=== PATIENT | male | born 1930 | race Native Hawaiian/Other Pacific Islander ===

== ENCOUNTER 2018-04-24 15:36 | Inpatient (IN) | payer MEDICARE, MEDICAID ==
[2018-04-24] MEDS ORDERED: Lidocaine 5% Patch TD ONE ×2 (16:21→16:27)
--- NOTE | 2018-04-24 16:21 | C.PDOC ---
History Of Present Illness 87 years old male presents to ED for complaints of left lower back pain s/p fall last night. Patient states he accidentally fell off the toilet. Patient reports he uses a walker. He also reports he was ambulatory on the scene. Patient describes pain is persistent, localized, and worse with movement. Denies taking pain medications. Denies sustaining head injury. Patient's LOC was witnessed by family. No prolonged time on floor. L LOWER BACK PAIN SP FALL LAST NIGHT. ACCID FELL OFF TOILET. USES WALKER. AMBUL ON SCENE. CO PERSIST PAIN, LOCALIZED WORSE W MOVEMENT. NO PAIN MEDS TRIED. NO HEAD INJURY, LOC WITNESSED BY FAMILY. NO PROLONGED TIME ON THE FLOOR. EXAM MILD DIST NONTOXIC HEENT ATRAUM NECK SUPPLE NONTEND EXT AROM B/L HIP WO DIFF. BACK B/L LOWER BACK TEND W SPASM, NO FOCAL SPINAL TEND NEURO INTACT SKIN INTACT - HPI Time Seen by Provider: 04/24/18 15:43 Chief Complaint (Nursing): Back Pain History Per: Patient, Family History/Exam Limitations: no limitations Onset/Duration Of Symptoms: Hrs Injury Occurred (Timing): Hours Ago: Location Of Injury: Left: Back Associated Symptoms: LOC Recent travel outside of the [place]: No - Fall Fall:Prior To Injury: Slipped Past Medical History Reviewed: Historical Data, Nursing Documentation, Vital Signs Vital Signs: Last Vital Signs Temp 98.1 F 04/24/18 15:40 Pulse 77 04/24/18 16:09 Resp 15 04/24/18 16:09 BP 159/68 H 04/24/18 16:09 Pulse Ox 99 04/24/18 16:09 - Medical History PMH: Arthritis, Benign Prostatic Hyperplasia, HTN, Parkinson's Disease Denies: Chronic Kidney Disease - [facility] Procedures CENTRAL VENOUS CATHETER PLACEMENT WITH GUIDANCE (06/25/13) EXCISION OF DUODENUM, ENDO, DIAGN (11/23/15) EXCISION OF STOMACH, ENDO, DIAGN (11/23/15) TRANSFUSE NONAUT RED BLOOD CELLS IN PERIPH VEIN, PERC (11/23/15) Family History: States: Unknown Family Hx - Social History Hx Tobacco Use: No Hx Alcohol Use: No Hx Substance Use: No - Immunization History Hx Tetanus Toxoid Vaccination: No Hx Influenza Vaccination: Yes Hx Pneumococcal Vaccination: Yes Review Of Systems Constitutional: Negative for: Fever, Chills Gastrointestinal: Negative for: Nausea, Vomiting, Diarrhea Musculoskeletal: Positive for: Back Pain (Left lower back ) Skin: Negative for: Rash Neurological: Negative for: Weakness, Numbness Physical Exam - Physical Exam Appears: Non-toxic, In Acute Distress (Mild ) Skin: Normal Color, Warm, Dry, No Rash Head: Atraumatic, Normacephalic Eye(s): bilateral: Normal Inspection, PERRL, EOMI Nose: Normal, No Deformity Oral Mucosa: Moist Throat: Normal, No Erythema, No Exudate, No Drooling, No Mass Neck: Normal ROM, Supple Chest: Symmetrical, No Tenderness Cardiovascular: Rhythm Regular Respiratory: Normal Breath Sounds, No Rales, No Rhonchi, No Wheezing Gastrointestinal/Abdominal: Bowel Sounds, Soft, No Tenderness Back: Other (Bilateral lower back tenderness with spasm. No focal spinal tenderness. ) Extremity: Normal ROM (Active ROM of bilateral hip with no difficulties. ) Extremity: Bilateral: Atraumatic, Normal Color And Temperature, Normal ROM Pulses: Left Radial: Normal, Right Radial: Normal Neurological/Psych: Oriented x3, Normal Speech, Normal Motor, Normal Sensation, Normal Reflexes ED Course And Treatment O2 Sat by Pulse Oximetry: 99 (RA) Pulse Ox Interpretation: Normal - Other Rad LS SPINE X-Ray: Interpreted by Me (NEG FX) Lumbar Spine X-Ray X-Ray: Viewed By Me, Read By Radiologist Interpretation: Lumbar spine three views. HISTORY: Injury. COMPARISON: None available. Findings: Limited study secondary to suboptimal technique. Atherosclerotic calcification and plaque within the aorta. Mild anterolisthesis of L4 on L5. Multilevel disc space narrowing. Multilevel anterior osteophyte formation. Lower level facet hypertrophy and sclerosis. Loss of height of the inferior endplate of the L3 vertebral body. Sacrum is obscured by overlying bowel gas. Impression: Degenerative changes. If pain persists, consider correlation with MRI. Reevaluation Time: 17:43 Reassessment Condition: Improved Medical Decision Making Medical Decision Making: Plan: * Flexeril * Lidocaine * Toradol * Tylenol * Lumbar Spine X-Ray * LS Spine AP/LAT X-Ray Disposition Counseled Patient/Family Regarding: Studies Performed, Diagnosis, Need For Followup, Rx Given - Disposition Referrals: YOUR,PMD [Other] Disposition: HOME/ ROUTINE Disposition Time: 17:44 Condition: IMPROVED Prescriptions: Acetaminophen [Tylenol 325mg tab] 650 mg PO Q6 #30 tab Cyclobenzaprine [Flexeril] 5 mg PO TID #15 tab Ibuprofen [Motrin] 400 mg PO QID #30 tab Instructions: Low Back Pain (DC) Forms: [employer] (Armenian) - Clinical Impression Clinical Impression: Low back pain, Contusion of back - Scribe Statement The provider has reviewed the documentation as recorded by the Scribe Geri Oneil All medical record entries made by the Scribe were at my direction and personally dictated by me. I have reviewed the chart and agree that the record accurately reflects my personal performance of the history, physical exam, medical decision making, and the department course for this patient. I have also personally directed, reviewed, and agree with the discharge instructions and disposition.
--- NOTE | 2018-04-24 16:58 | RAD ---
Lumbar spine three views HISTORY: Injury. COMPARISON: None available. Findings: Limited study secondary to suboptimal technique. Atherosclerotic calcification and plaque within the aorta. Mild anterolisthesis of L4 on L5. Multilevel disc space narrowing. Multilevel anterior osteophyte formation. Lower level facet hypertrophy and sclerosis. Loss of height of the inferior endplate of the L3 vertebral body. Sacrum is obscured by overlying bowel gas. Impression: Degenerative changes. If pain persists, consider correlation with MRI.
--- NOTE | 2018-04-24 23:51 | CP.PCM.HP ---
Past Patient History - Infectious Disease Hx of Infectious Diseases: None - Past Medical History & Family History Past Medical History?: Yes - Past Social History Smoking Status: Former Smoker - CARDIAC Hx Hypertension: Yes - PULMONARY Hx Respiratory Disorders: No - NEUROLOGICAL Hx Parkinson's Disease: Yes - HEENT Hx HEENT Problems: No - RENAL Hx Chronic Kidney Disease: No - ENDOCRINE/METABOLIC Hx Endocrine Disorders: No - HEMATOLOGICAL/ONCOLOGICAL Hx Blood Disorders: No - INTEGUMENTARY Hx Dermatological Problems: No - MUSCULOSKELETAL/RHEUMATOLOGICAL Hx Arthritis: Yes - GASTROINTESTINAL Hx Gastrointestinal Disorders: Yes Hx Gastroesophageal Reflux: Yes - GENITOURINARY/GYNECOLOGICAL Hx Genitourinary Disorders: No - PSYCHIATRIC Hx Substance Use: No - SURGICAL HISTORY Hx Surgeries: Yes Hx Cataract Extraction: Yes (1994) - ANESTHESIA Hx Anesthesia: Yes Hx Anesthesia Reactions: No Hx Malignant Hyperthermia: No Meds Home Medications: Home Medication List Medication Instructions Recorded Confirmed Type Acetaminophen [Tylenol 325mg tab] 650 mg PO Q6 #30 tab 04/24/18 Rx Cyclobenzaprine [Flexeril] 5 mg PO TID #15 tab 04/24/18 Rx Ibuprofen [Motrin] 400 mg PO QID #30 tab 04/24/18 Rx Allergies/Adverse Reactions: Allergies Allergy/AdvReac Type Severity Reaction Status Date / Time No Known Allergies Allergy Verified 04/24/18 15:46 Results - Vital Signs Recent Vital Signs: Last Vital Signs Temp 98.6 F 04/24/18 21:40 Pulse 75 04/24/18 21:40 Resp 20 04/24/18 21:40 BP 157/81 H 04/24/18 21:40 Pulse Ox 96 04/24/18 21:40
[2018-04-25] MEDS: Carbidopa/Levodopa 25/100 CR PO SCH ×3 (09:40→18:08)
[2018-04-25] MEDS: Pantoprazole 40 mg EC Tab PO SCH (09:43)
[2018-04-25] MEDS ORDERED: OLOPATADINE 0.1% OU SCH (10:00)
[2018-04-25] MEDS ORDERED: Enoxaparin 40 mg Syringe SC SCH (10:00)
[2018-04-25] MEDS ORDERED: Home Med 1 UNIT (Multivitamin [Multivitamins] 1 EACH) PO SCH (10:00)
[2018-04-25] MEDS ORDERED: RASAGILINE MESYLATE 1 MG PO SCH (10:00)
[2018-04-25] MEDS: Multiple Vitamins Tab PO SCH (11:10)
[2018-04-25 11:18] LABS: BASO # 0.1 K/uL (0.0-0.2); EOS # 0.3 K/uL (0.0-0.7); EOS % 3.1 % (0.0-4.0); HEMOGLOBIN 8.4 g/dL (12.0-18.0); LYMPH % 9.9 % (20.0-40.0); MEAN CELL VOLUME 98.5 fL (80.0-94.0); MEAN CORPUSCULAR HEMOGLOBIN 32.5 pg (27.0-31.0); MEAN CORPUSCULAR HGB CONC 33.1 g/dL (33.0-37.0); MEAN PLATELET VOLUME 10.8 fL (7.2-11.7); MONO # 0.5 K/uL (0.0-0.8); MONO % 4.6 % (0.0-10.0); NEUT % 81.4 % (50.0-75.0); NRBC % 0.1 % (0.0-2.0); PLATELET COUNT 318 K/uL (130-400); RBC 2.57 Mil/uL (4.40-5.90); RED CELL DISTRIBUTION WIDTH 17.4 % (11.5-14.5); WHITE BLOOD COUNT 9.9 K/uL (4.8-10.8)
[2018-04-25 11:26] LABS: INR 1.4; PROTHROMBIN TIME 14.8 SECONDS (9.7-12.2)
[2018-04-25 11:35] LABS: ALB/GLOB RATIO 1.1 (1.0-2.1); ALBUMIN 3.6 g/dL (3.5-5.0); CALCIUM 8.2 mg/dl (8.6-10.4)
[2018-04-25 12:00] LABS: ANISOCYTOSIS SLIGHT; BANDS 1 % (0-2); EOSINOPHIL 1 % (0-4); HYPOCHROMIC SLIGHT; LYMPHOCYTE 8 % (20-40); MONOCYTE 4 % (0-10); NEUTROPHIL 86 % (50-75); OVALOCYTES SLIGHT; PLATELET ESTIMATE NORMAL (NORMAL); POLYCHROMIC SLIGHT; TOTAL CELLS COUNTED 100
--- NOTE | 2018-04-25 14:24 | CP.PCM.PN ---
Subjective - Date & Time of Evaluation Date of Evaluation: 04/25/18 Time of Evaluation: 09:30 - Subjective Subjective: clinically same Objective - Vital Signs/Intake and Output Vital Signs (last 24 hours): Temp Pulse Resp BP Pulse Ox 98 F 75 20 137/68 97 04/25/18 08:00 04/25/18 11:41 04/25/18 08:00 04/25/18 09:38 04/25/18 08:00 Intake and Output: 04/25/18 04/25/18 06:59 18:59 Intake Total 60 Balance 60 - Medications Medications: Current Medications Aspirin (Ecotrin) 81 mg PO DAILY [facility] Last Admin: 04/25/18 09:39 Dose: 81 mg Carbidopa/Levodopa (Sinemet Cr) 1 tab PO TID [facility] Last Admin: 04/25/18 13:16 Dose: 1 tab Carvedilol (Coreg) 25 mg PO Q12H [facility] Last Admin: 04/25/18 08:00 Dose: 25 mg Clopidogrel Bisulfate (Plavix) 75 mg PO DAILY [facility] Last Admin: 04/25/18 09:39 Dose: 75 mg Docusate Sodium (Colace) 100 mg PO BID PRN PRN Reason: Constipation Enoxaparin Sodium (Lovenox) 40 mg SC DAILY [facility] Last Admin: 04/25/18 09:39 Dose: 40 mg Entacapone (Comtan) 200 mg PO TID [facility] Last Admin: 04/25/18 13:16 Dose: 200 mg Ferrous Sulfate (Feosol) 325 mg PO TID [facility] Last Admin: 04/25/18 13:16 Dose: 325 mg Folic Acid (Folic Acid) 1 mg PO DAILY [facility] Last Admin: 04/25/18 09:39 Dose: 1 mg Gabapentin (Neurontin) 300 mg PO TID [facility] Last Admin: 04/25/18 13:16 Dose: 300 mg Home Med (Olopatadine 0.1% Opht [Patanol 0.1% Opht Soln]) 1 drop OU BID [facility] Home Med (Rasagiline Mesylate [Rasagiline Mesylate]) 1 mg PO DAILY [facility] Losartan Potassium (Cozaar) 100 mg PO DAILY [facility] Last Admin: 04/25/18 09:39 Dose: 100 mg Multivitamins (Hexavitamin) 1 tab PO DAILY [facility] Last Admin: 04/25/18 11:10 Dose: 1 tab Pantoprazole Sodium (Protonix Ec Tab) 40 mg PO DAILY [facility] Last Admin: 04/25/18 09:43 Dose: 40 mg Tamsulosin HCl (Flomax) 0.8 mg PO DAILY [facility] Last Admin: 04/25/18 10:37 Dose: 0.8 mg - Labs Labs: 04/25/18 11:01 04/25/18 11:01 PT 14.8 SECONDS (9.7-12.2) H 04/25/18 11:01 INR 1.4 04/25/18 11:01 APTT 36 SECONDS (21-34) H 04/25/18 11:01 - Constitutional Appears: Well - Head Exam Head Exam: ATRAUMATIC, NORMAL INSPECTION, NORMOCEPHALIC - Eye Exam Eye Exam: EOMI, Normal appearance, PERRL Pupil Exam: NORMAL ACCOMODATION, PERRL - ENT Exam ENT Exam: Mucous Membranes Moist, Normal Exam - Neck Exam Neck Exam: Full ROM, Normal Inspection. absent: Lymphadenopathy - Respiratory Exam Respiratory Exam: Decreased Breath Sounds - Cardiovascular Exam Cardiovascular Exam: REGULAR RHYTHM, +S1, +S2 - GI/Abdominal Exam GI & Abdominal Exam: Soft, Diminished Bowel Sounds - Rectal Exam Rectal Exam: Deferred
[2018-04-25] MEDS: Naphazoline-Pheniramine Ophth Soln OU PRN (20:46)
[2018-04-26] MEDS: Carbidopa/Levodopa 25/100 CR PO SCH ×3 (09:43→18:13)
[2018-04-26] MEDS: Multiple Vitamins Tab PO SCH (09:43)
[2018-04-26] MEDS: Pantoprazole 40 mg EC Tab PO SCH (09:45)
--- NOTE | 2018-04-26 17:16 | CP.PCM.PN ---
Subjective - Date & Time of Evaluation Date of Evaluation: 04/26/18 Time of Evaluation: 08:30 - Subjective Subjective: clinically same Objective - Vital Signs/Intake and Output Vital Signs (last 24 hours): Temp Pulse Resp BP Pulse Ox 98.2 F 58 L 20 107/57 L 100 04/26/18 15:00 04/26/18 15:00 04/26/18 15:00 04/26/18 15:00 04/26/18 15:00 Intake and Output: 04/26/18 04/26/18 06:59 18:59 Intake Total 300 300 Balance 300 300 - Medications Medications: Current Medications Aspirin (Ecotrin) 81 mg PO DAILY [facility] Last Admin: 04/26/18 09:43 Dose: 81 mg Carbidopa/Levodopa (Sinemet Cr) 1 tab PO TID [facility] Last Admin: 04/26/18 14:18 Dose: 1 tab Carvedilol (Coreg) 25 mg PO Q12H [facility] Last Admin: 04/26/18 08:49 Dose: 25 mg Clopidogrel Bisulfate (Plavix) 75 mg PO DAILY [facility] Last Admin: 04/26/18 09:43 Dose: 75 mg Docusate Sodium (Colace) 100 mg PO BID PRN PRN Reason: Constipation Enoxaparin Sodium (Lovenox) 30 mg SC DAILY [facility] Entacapone (Comtan) 200 mg PO TID [facility] Last Admin: 04/26/18 14:18 Dose: 200 mg Ferrous Sulfate (Feosol) 325 mg PO TID [facility] Last Admin: 04/26/18 14:18 Dose: 325 mg Folic Acid (Folic Acid) 1 mg PO DAILY [facility] Last Admin: 04/26/18 09:43 Dose: 1 mg Gabapentin (Neurontin) 300 mg PO TID [facility] Last Admin: 04/26/18 14:18 Dose: 300 mg Home Med (Patient's Own Medication) 1 tab PO DAILY [facility] Losartan Potassium (Cozaar) 100 mg PO DAILY [facility] Last Admin: 04/26/18 09:42 Dose: 100 mg Multivitamins (Hexavitamin) 1 tab PO DAILY [facility] Last Admin: 04/26/18 09:43 Dose: 1 tab Naphazoline HCl/Pheniramine Maleate (Naphcon-A Opht) 0 ml OU QID PRN PRN Reason: OCULAR ITCHING/REDNESS Stop: 04/28/18 18:01 Last Admin: 04/25/18 20:46 Dose: 1 drop Pantoprazole Sodium (Protonix Ec Tab) 40 mg PO DAILY [facility] Last Admin: 04/26/18 09:45 Dose: 40 mg Tamsulosin HCl (Flomax) 0.8 mg PO DAILY [facility] Last Admin: 04/26/18 09:47 Dose: 0.8 mg - Labs Labs: 04/25/18 11:01 04/25/18 11:01 PT 14.8 SECONDS (9.7-12.2) H 04/25/18 11:01 INR 1.4 04/25/18 11:01 APTT 36 SECONDS (21-34) H 04/25/18 11:01 - Constitutional Appears: Well - Head Exam Head Exam: ATRAUMATIC, NORMAL INSPECTION, NORMOCEPHALIC - Eye Exam Eye Exam: EOMI, Normal appearance, PERRL Pupil Exam: NORMAL ACCOMODATION, PERRL - ENT Exam ENT Exam: Mucous Membranes Moist, Normal Exam - Neck Exam Neck Exam: Full ROM, Normal Inspection. absent: Lymphadenopathy - Respiratory Exam Respiratory Exam: Decreased Breath Sounds - Cardiovascular Exam Cardiovascular Exam: REGULAR RHYTHM, +S1, +S2 - GI/Abdominal Exam GI & Abdominal Exam: Soft, Diminished Bowel Sounds - Rectal Exam Rectal Exam: Deferred
[2018-04-27] MEDS: Carbidopa/Levodopa 25/100 CR PO SCH ×3 (09:01→17:36)
[2018-04-27] MEDS: Multiple Vitamins Tab PO SCH (09:01)
[2018-04-27] MEDS: Pantoprazole 40 mg EC Tab PO SCH (09:01)
[2018-04-27] MEDS: Rasagiline Mesylate [Rasagiline Mesylate] 1 MG PO SCH (09:02)
[2018-04-27] MEDS: Enoxaparin 30 mg Syringe SC SCH (09:08)
[2018-04-27 11:30] LABS: BASO # 0.1 K/uL (0.0-0.2); EOS # 0.3 K/uL (0.0-0.7); EOS % 4.1 % (0.0-4.0); HEMOGLOBIN 7.6 g/dL (12.0-18.0); LYMPH # 0.9 K/uL (1.0-4.3); LYMPH % 11.3 % (20.0-40.0); MEAN CORPUSCULAR HEMOGLOBIN 32.4 pg (27.0-31.0); MEAN CORPUSCULAR HGB CONC 32.8 g/dL (33.0-37.0); MEAN PLATELET VOLUME 11.2 fL (7.2-11.7); MONO # 0.5 K/uL (0.0-0.8); MONO % 6.2 % (0.0-10.0); NEUT # 6.2 K/uL (1.8-7.0); NEUT % 77.4 % (50.0-75.0); RBC 2.34 Mil/uL (4.40-5.90); RED CELL DISTRIBUTION WIDTH 17.3 % (11.5-14.5)
[2018-04-27 12:27] LABS: BLOOD UREA NITROGEN 20 mg/dL (9-20); CALCIUM 8.3 mg/dl (8.6-10.4); GFR NON-AFRICAN AMERICAN 57
--- NOTE | 2018-04-27 18:51 | CP.PCM.PN ---
Subjective - Date & Time of Evaluation Date of Evaluation: 04/27/18 Time of Evaluation: 09:00 - Subjective Subjective: clinically same Objective - Vital Signs/Intake and Output Vital Signs (last 24 hours): Temp Pulse Resp BP Pulse Ox 97.8 F 63 16 133/69 100 04/27/18 18:03 04/27/18 18:03 04/27/18 18:03 04/27/18 18:03 04/27/18 16:00 Intake and Output: 04/27/18 04/27/18 06:59 18:59 Intake Total 350 500 Output Total 200 450 Balance 150 50 - Medications Medications: Current Medications Aspirin (Ecotrin) 81 mg PO DAILY [facility] Last Admin: 04/27/18 09:01 Dose: 81 mg Carbidopa/Levodopa (Sinemet Cr) 1 tab PO TID [facility] Last Admin: 04/27/18 17:36 Dose: 1 tab Carvedilol (Coreg) 25 mg PO Q12H [facility] Last Admin: 04/27/18 09:02 Dose: 25 mg Clopidogrel Bisulfate (Plavix) 75 mg PO DAILY [facility] Last Admin: 04/27/18 09:01 Dose: 75 mg Docusate Sodium (Colace) 100 mg PO BID PRN PRN Reason: Constipation Last Admin: 04/27/18 09:08 Dose: 100 mg Enoxaparin Sodium (Lovenox) 30 mg SC DAILY [facility] Last Admin: 04/27/18 09:08 Dose: 30 mg Entacapone (Comtan) 200 mg PO TID [facility] Last Admin: 04/27/18 17:35 Dose: 200 mg Ferrous Sulfate (Feosol) 325 mg PO TID [facility] Last Admin: 04/27/18 17:35 Dose: 325 mg Folic Acid (Folic Acid) 1 mg PO DAILY [facility] Last Admin: 04/27/18 09:02 Dose: 1 mg Gabapentin (Neurontin) 300 mg PO TID [facility] Last Admin: 04/27/18 17:35 Dose: 300 mg Home Med (Patient's Own Medication) 1 tab PO DAILY [facility] Last Admin: 04/27/18 09:02 Dose: 1 tab Losartan Potassium (Cozaar) 100 mg PO DAILY [facility] Last Admin: 04/27/18 09:01 Dose: 100 mg Multivitamins (Hexavitamin) 1 tab PO DAILY [facility] Last Admin: 04/27/18 09:01 Dose: 1 tab Naphazoline HCl/Pheniramine Maleate (Naphcon-A Opht) 0 ml OU QID PRN PRN Reason: OCULAR ITCHING/REDNESS Stop: 04/28/18 18:01 Last Admin: 04/25/18 20:46 Dose: 1 drop Pantoprazole Sodium (Protonix Ec Tab) 40 mg PO DAILY [facility] Last Admin: 04/27/18 09:01 Dose: 40 mg Tamsulosin HCl (Flomax) 0.8 mg PO DAILY [facility] Last Admin: 04/27/18 09:08 Dose: 0.8 mg - Labs Labs: 04/27/18 11:08 04/27/18 11:08 PT 14.8 SECONDS (9.7-12.2) H 04/25/18 11:01 INR 1.4 04/25/18 11:01 APTT 36 SECONDS (21-34) H 04/25/18 11:01 - Constitutional Appears: Well - Head Exam Head Exam: ATRAUMATIC, NORMAL INSPECTION, NORMOCEPHALIC - Eye Exam Eye Exam: EOMI, Normal appearance, PERRL Pupil Exam: NORMAL ACCOMODATION, PERRL - ENT Exam ENT Exam: Mucous Membranes Moist, Normal Exam - Neck Exam Neck Exam: Full ROM, Normal Inspection. absent: Lymphadenopathy - Respiratory Exam Respiratory Exam: Decreased Breath Sounds - Cardiovascular Exam Cardiovascular Exam: REGULAR RHYTHM, +S1, +S2 - GI/Abdominal Exam GI & Abdominal Exam: Soft, Diminished Bowel Sounds - Rectal Exam Rectal Exam: Deferred
[2018-04-27] MEDS: Naphazoline-Pheniramine Ophth Soln OU PRN (22:04)
[2018-04-28 07:36] LABS: BASO # 0.1 K/uL (0.0-0.2); BASO % 1.6 % (0.0-2.0); EOS # 0.5 K/uL (0.0-0.7); EOS % 5.5 % (0.0-4.0); HEMOGLOBIN 9.2 g/dL (12.0-18.0); LYMPH # 1.3 K/uL (1.0-4.3); LYMPH % 14.5 % (20.0-40.0); MEAN CORPUSCULAR HEMOGLOBIN 32.9 pg (27.0-31.0); MEAN CORPUSCULAR HGB CONC 34.2 g/dL (33.0-37.0); MEAN PLATELET VOLUME 11.3 fL (7.2-11.7); MONO # 0.5 K/uL (0.0-0.8); MONO % 6.2 % (0.0-10.0); NEUT # 6.3 K/uL (1.8-7.0); NEUT % 72.2 % (50.0-75.0); NRBC % 0.1 % (0.0-2.0); RBC 2.79 Mil/uL (4.40-5.90); RED CELL DISTRIBUTION WIDTH 18.6 % (11.5-14.5); WHITE BLOOD COUNT 8.7 K/uL (4.8-10.8)
[2018-04-28 07:40] LABS: MEAN CELL VOLUME 96.2 fL (80.0-94.0)
[2018-04-28 08:32] LABS: BLOOD UREA NITROGEN 17 mg/dL (9-20); CALCIUM 7.9 mg/dl (8.6-10.4); GFR NON-AFRICAN AMERICAN > 60
[2018-04-28] MEDS: Carbidopa/Levodopa 25/100 CR PO SCH ×3 (09:11→17:21)
[2018-04-28] MEDS: Enoxaparin 30 mg Syringe SC SCH (09:11)
[2018-04-28] MEDS: Multiple Vitamins Tab PO SCH (09:12)
[2018-04-28] MEDS: Rasagiline Mesylate [Rasagiline Mesylate] 1 MG PO SCH (09:12)
[2018-04-28] MEDS: Naphazoline-Pheniramine Ophth Soln OU PRN (09:12)
[2018-04-28] MEDS: Pantoprazole 40 mg EC Tab PO SCH (09:12)
--- NOTE | 2018-04-28 15:48 | CP.PCM.PN ---
Subjective - Date & Time of Evaluation Date of Evaluation: 04/28/18 Time of Evaluation: 10:00 - Subjective Subjective: clinically same Objective - Vital Signs/Intake and Output Vital Signs (last 24 hours): Temp Pulse Resp BP Pulse Ox 98.9 F 61 20 110/61 95 04/28/18 15:33 04/28/18 15:33 04/28/18 15:33 04/28/18 15:33 04/28/18 15:33 Intake and Output: 04/28/18 04/28/18 06:59 18:59 Intake Total 950 350 Output Total 650 Balance 950 -300 - Medications Medications: Current Medications Aspirin (Ecotrin) 81 mg PO DAILY [facility] Last Admin: 04/28/18 09:11 Dose: 81 mg Carbidopa/Levodopa (Sinemet Cr) 1 tab PO TID [facility] Last Admin: 04/28/18 13:08 Dose: 1 tab Carvedilol (Coreg) 25 mg PO Q12H [facility] Last Admin: 04/28/18 08:26 Dose: 25 mg Clopidogrel Bisulfate (Plavix) 75 mg PO DAILY [facility] Last Admin: 04/28/18 09:11 Dose: 75 mg Docusate Sodium (Colace) 100 mg PO BID PRN PRN Reason: Constipation Last Admin: 04/27/18 09:08 Dose: 100 mg Enoxaparin Sodium (Lovenox) 30 mg SC DAILY [facility] Last Admin: 04/28/18 09:11 Dose: 30 mg Entacapone (Comtan) 200 mg PO TID [facility] Last Admin: 04/28/18 13:08 Dose: 200 mg Ferrous Sulfate (Feosol) 325 mg PO TID [facility] Last Admin: 04/28/18 13:08 Dose: 325 mg Folic Acid (Folic Acid) 1 mg PO DAILY [facility] Last Admin: 04/28/18 09:12 Dose: 1 mg Gabapentin (Neurontin) 300 mg PO TID [facility] Last Admin: 04/28/18 13:08 Dose: 300 mg Home Med (Patient's Own Medication) 1 tab PO DAILY [facility] Last Admin: 04/28/18 09:12 Dose: 1 tab Losartan Potassium (Cozaar) 100 mg PO DAILY [facility] Last Admin: 04/28/18 09:11 Dose: 100 mg Multivitamins (Hexavitamin) 1 tab PO DAILY [facility] Last Admin: 04/28/18 09:12 Dose: 1 tab Naphazoline HCl/Pheniramine Maleate (Naphcon-A Opht) 0 ml OU QID PRN PRN Reason: OCULAR ITCHING/REDNESS Stop: 04/28/18 18:01 Last Admin: 04/28/18 09:12 Dose: 1 drop Pantoprazole Sodium (Protonix Ec Tab) 40 mg PO DAILY [facility] Last Admin: 04/28/18 09:12 Dose: 40 mg Tamsulosin HCl (Flomax) 0.8 mg PO DAILY [facility] Last Admin: 04/28/18 09:18 Dose: 0.8 mg - Labs Labs: 04/28/18 07:33 04/28/18 07:33 PT 14.8 SECONDS (9.7-12.2) H 04/25/18 11:01 INR 1.4 04/25/18 11:01 APTT 36 SECONDS (21-34) H 04/25/18 11:01 - Constitutional Appears: Well - Head Exam Head Exam: ATRAUMATIC, NORMAL INSPECTION, NORMOCEPHALIC - Eye Exam Eye Exam: EOMI, Normal appearance, PERRL Pupil Exam: NORMAL ACCOMODATION, PERRL - ENT Exam ENT Exam: Mucous Membranes Moist, Normal Exam - Neck Exam Neck Exam: Full ROM, Normal Inspection. absent: Lymphadenopathy - Respiratory Exam Respiratory Exam: Decreased Breath Sounds - Cardiovascular Exam Cardiovascular Exam: REGULAR RHYTHM, +S1, +S2 - GI/Abdominal Exam GI & Abdominal Exam: Soft, Diminished Bowel Sounds - Rectal Exam Rectal Exam: Deferred
[2018-04-29] MEDS: Rasagiline Mesylate [Rasagiline Mesylate] 1 MG PO SCH (09:43)
[2018-04-29] MEDS: Carbidopa/Levodopa 25/100 CR PO SCH ×2 (09:44→13:30)
[2018-04-29] MEDS: Multiple Vitamins Tab PO SCH (09:44)
[2018-04-29] MEDS: Pantoprazole 40 mg EC Tab PO SCH (09:44)
[2018-04-29] MEDS: Enoxaparin 30 mg Syringe SC SCH (09:45)
--- NOTE | 2018-04-29 14:31 | CP.PCM.PN ---
Subjective - Date & Time of Evaluation Date of Evaluation: 04/29/18 Time of Evaluation: 09:15 - Subjective Subjective: clinically same Objective - Vital Signs/Intake and Output Vital Signs (last 24 hours): Temp Pulse Resp BP Pulse Ox 98.4 F 71 18 148/76 98 04/29/18 07:42 04/29/18 09:42 04/29/18 07:42 04/29/18 09:42 04/29/18 07:42 Intake and Output: 04/29/18 04/29/18 06:59 18:59 Intake Total 350 120 Balance 350 120 - Medications Medications: Current Medications Aspirin (Ecotrin) 81 mg PO DAILY [facility] Last Admin: 04/29/18 09:50 Dose: 81 mg Carbidopa/Levodopa (Sinemet Cr) 1 tab PO TID [facility] Last Admin: 04/29/18 13:30 Dose: 1 tab Carvedilol (Coreg) 25 mg PO Q12H [facility] Last Admin: 04/29/18 07:50 Dose: 25 mg Clopidogrel Bisulfate (Plavix) 75 mg PO DAILY [facility] Last Admin: 04/29/18 09:44 Dose: 75 mg Docusate Sodium (Colace) 100 mg PO BID PRN PRN Reason: Constipation Last Admin: 04/27/18 09:08 Dose: 100 mg Enoxaparin Sodium (Lovenox) 30 mg SC DAILY [facility] Last Admin: 04/29/18 09:45 Dose: 30 mg Entacapone (Comtan) 200 mg PO TID [facility] Last Admin: 04/29/18 13:30 Dose: 200 mg Ferrous Sulfate (Feosol) 325 mg PO TID [facility] Last Admin: 04/29/18 13:30 Dose: 325 mg Folic Acid (Folic Acid) 1 mg PO DAILY [facility] Last Admin: 04/29/18 10:25 Dose: 1 mg Gabapentin (Neurontin) 300 mg PO TID [facility] Last Admin: 04/29/18 13:30 Dose: 300 mg Home Med (Patient's Own Medication) 1 tab PO DAILY [facility] Last Admin: 04/29/18 09:43 Dose: 1 tab Losartan Potassium (Cozaar) 100 mg PO DAILY [facility] Last Admin: 04/29/18 09:44 Dose: 100 mg Multivitamins (Hexavitamin) 1 tab PO DAILY [facility] Last Admin: 04/29/18 09:44 Dose: 1 tab Pantoprazole Sodium (Protonix Ec Tab) 40 mg PO DAILY [facility] Last Admin: 04/29/18 09:44 Dose: 40 mg Tamsulosin HCl (Flomax) 0.8 mg PO DAILY [facility] Last Admin: 04/29/18 09:45 Dose: 0.8 mg - Labs Labs: 04/28/18 07:33 04/28/18 07:33 PT 14.8 SECONDS (9.7-12.2) H 04/25/18 11:01 INR 1.4 04/25/18 11:01 APTT 36 SECONDS (21-34) H 04/25/18 11:01
[2018-04-29 16:55] VITALS: BP 95/50; PULSE 65; RESP 20; TEMP 98.5; O2SAT 97
== END 2018-04-29 17:32 | DRG 605 ==
LOC: C.ER 15:36 → C.9E 19:37 → C.5S 20:42 → OBSVTOIN 04-26 18:57
PROVIDERS: ADMIT Internal Medicine Nephrology; ATTEND Internal Medicine Nephrology
DX: S30.0XXA Contusion of lower back and pelvis, initial encounter (principal); R53.1 Weakness; I10 Essential (primary) hypertension; M54.9 Dorsalgia, unspecified; W18.11XA Fall from or off toilet without subsequent striking against object, initial encounter; G20 Parkinson's disease; N40.0 Benign prostatic hyperplasia without lower urinary tract symptoms; Z87.891 Personal history of nicotine dependence; K21.9 Gastro-esophageal reflux disease without esophagitis; M19.90 Unspecified osteoarthritis, unspecified site